=== PATIENT | female | born 1970 | race Caucasian/White ===

== ENCOUNTER 2021-10-19 12:09 | Emergency (ER) | payer OTHER ==
[2021-10-19] MEDS ORDERED: Adacel Vial IM ONE ×2 (12:42→12:46)
[2021-10-19] MEDS ORDERED: BACIGUENT PACKET TP ONE (12:43)
[2021-10-19] MEDS ORDERED: BACIGUENT PACKET ONE (12:46)
--- NOTE | 2021-10-19 12:57 | ERPHSYRPT ---
- History of Present Illness Time Seen by Provider: 10/19/21 12:25 Source: patient Exam Limitations: no limitations Patient Subjective Stated Complaint: Pt states "I was cutting plastic tags off with a sharp knife and cut my thumb." Triage Nursing Assessment: Pt Presented alert and oriented X 3, s,i pwd Pt ambualtes with an upright steady gait, able to speak in clear full sentences. Pt has laceration noted to left thumb, bleeding controlled. Physician History: This is a 50-year-old diabetic white female who is right-handed and was using a knife to cut slipped ties off with a knife and it slipped and cut the tip of her left thumb. She presents with a small laceration/flap to the tip of her thumb and the distal portion of a portion of her left thumb nailbed. She does not recall when the last tetanus shot was given to her. Timing/Duration: today Quality: painful Severity: mild (To moderate) Location: hands (Left thumb) Possible Causes: other (Accidental cut with a knife) Associated Symptoms: denies symptoms Allergies/Adverse Reactions: Penicillins Allergy (Verified 10/19/21 12:18) Hives Home Medications: Atorvastatin Calcium [Lipitor] 80 mg PO DAILY 10/19/21 [History] Carvedilol 6.25 mg [Coreg 6.25 MG] 6.25 mg PO DAILY 10/19/21 [History] Celecoxib [Celebrex] 100 mg PO DAILY 10/19/21 [History] Duloxetine HCl [Cymbalta] 30 mg PO DAILY 10/19/21 [History] Metformin HCl 500 mg [Glucophage 500 MG] 500 mg PO BIDWM 10/19/21 [History] Pregabalin [Lyrica] 300 mg PO DAILY 10/19/21 [History] Hx Tetanus, Diphtheria Vaccination/Date Given: No Hx Influenza Vaccination/Date Given: Yes Hx Pneumococcal Vaccination/Date Given: No Immunizations Up to Date: Yes Travel Risk - International Travel Have you traveled outside of the country in past 3 weeks: No - Coronavirus Screening Are you exhibiting any of the following symptoms?: No Close contact with a COVID-19 positive Pt in past 14-21 Days: No - Vaccine Status Have you recieved a Covid-19 vaccination: Yes [employer] Splitter: Moderna - Vaccination Dates Date of 2cond Vaccination (if applicable): 01/2021 - Review of Systems Constitutional: No Symptoms Eyes: No Symptoms Ears, Nose, & Throat: No Symptoms Respiratory: No Symptoms Cardiac: No Symptoms Abdominal/Gastrointestinal: No Symptoms Genitourinary Symptoms: No Symptoms Musculoskeletal: No Symptoms Skin: No Symptoms Neurological: No Symptoms Psychological: No Symptoms Endocrine: No Symptoms Hematologic/Lymphatic: No Symptoms Immunological/Allergic: No Symptoms All Other Systems: Reviewed and Negative - Past Medical History Pertinent Past Medical History: Yes - Past Surgical History Past Surgical History: No - Social History Smoking Status: Never smoker Exposure to second hand smoke: No Drug Use: none Patient Lives Alone: No - Female History Hx Last Menstrual Period: hysterectomy Hx Now: No - Nursing Vital Signs Nursing Vital Signs: Initial Vital Signs Temperature 97.5 F 10/19/21 12:12 Pulse Rate 88 10/19/21 12:12 Respiratory Rate 20 10/19/21 12:12 Blood Pressure 158/91 10/19/21 12:12 O2 Sat by Pulse Oximetry 96 10/19/21 12:12 Pain Scale Pain Intensity 9 - Physical Exam General Appearance: no apparent distress, alert, anxiety, obese Eye Exam: PERRL/EOMI, eyes nml inspection Ears, Nose, Throat Exam: normal ENT inspection, moist mucous membranes Neck Exam: normal inspection, non-tender, supple, full range of motion Respiratory Exam: No chest tenderness, No respiratory distress Gastrointestinal/Abdomen Exam: No tenderness Rectal Exam: not done Back Exam: normal inspection, normal range of motion, No CVA tenderness, No vertebral tenderness Extremity Exam: normal range of motion, lacerations (Tip of left thumb), tenderness (Tip of left thumb), other (Patient's tendon function left thumb is intact. Patient is neurovascularly intact) Neurologic Exam: alert, oriented x 3, cooperative, piper installer II-XII nml as tested, normal mood/affect, nml cerebellar function, nml station & gait, sensation nml Skin Exam: laceration (Small less than 1/2 cm flap laceration to the tip of the left thumb. There is a angulated laceration to the distal portion of nail. No active bleeding present.) Lymphatic Exam: No adenopathy SpO2 Interpretation: normal SpO2: 96 O2 Delivery: Room Air - Course Nursing assessment & vital signs reviewed: Yes Ordered Tests: Medication Summary Discontinued Medications Generic Name Dose Route Start Last Admin Trade Name Freq PRN Reason Stop Dose Admin Bacitracin Zinc 0.9 gm 10/19/21 12:43 10/19/21 12:48 Bacitracin Packet 0.9 Gm Pckt TP 10/19/21 12:44 0.9 gm STAT ONE Administration Bacitracin Zinc Confirm 10/19/21 12:46 Bacitracin Packet 0.9 Gm Pckt Administered 10/19/21 12:47 Dose 1 gm .ROUTE .STK-MED ONE Diphtheria/Tetanus/Acell Pertussis 0.5 ml 10/19/21 12:42 10/19/21 12:47 Tdap --Diph,Pertuss(Acell),Tet Vac/Pf 0.5 Ml Vial IM 10/19/21 12:43 0.5 ml .ONCE ONE Administration Diphtheria/Tetanus/Acell Pertussis Confirm 10/19/21 12:46 Tdap --Diph,Pertuss(Acell),Tet Vac/Pf 0.5 Ml Vial Administered 10/19/21 12:47 Dose 0.5 ml IM .STK-MED ONE - Progress Progress: improved, pain not gone completely, re-examined Progress Note: 10/19/21 12:56 Patients laceration site does not need any surgical repair. We will place a nonstick pressure dressing after antibiotic ointment applied Counseled pt/family regarding: diagnosis - Departure Departure Disposition: Home Clinical Impression: Laceration of left thumb with damage to nail Condition: Stable Critical Care Time: No Referrals: Provider,Unknown [Primary Care Provider] - Follow up/PCP as directed Additional Instructions: Keep the current dressing in place until morning of 10/21/2021. May then remove the dressing and rinse or soak the site with soapy water. Blot dry or use a hairdryer to dry the site as discussed. Do not rub the area. Once dried, apply a thin layer of antibiotic ointment and then reapply a Band-Aid/bandage as a pressure dressing. Do this daily. Add ibuprofen for pain control. Prescriptions: Hydrocodone/APAP 5/325 [Rhodhiss 5/325 mg] 1 each PO Q8H PRN PRN #6 tablet MDD 3 PRN Reason: Pain
[2021-10-19 13:04] VITALS: BP 150/68; PULSE 78; O2SAT 98
== END 2021-10-19 13:07 | disposition home or self-care (01) ==
LOC: ED 12:09
DX: S61.112A Laceration without foreign body of left thumb with damage to nail, initial encounter (principal); W26.0XXA Contact with knife, initial encounter; E11.9 Type 2 diabetes mellitus without complications; Z79.84 Long term (current) use of oral hypoglycemic drugs; Z79.891 Long term (current) use of opiate analgesic
CPT/HCPCS: 90471; 90715; 99283; A9270-GY